=== PATIENT | female | born 1965 ===

== ENCOUNTER 2019-11-21 08:33 | Outpatient (CLI) | payer OTHER ==
--- NOTE | 2019-11-21 09:03 | ULT ---
Sonogram right upper quadrant HISTORY: Nausea. Right upper quadrant pain. FINDINGS: Gallbladder has a normal appearance without stone evident. Common duct is 0.4 cm. Liver is diffusely echogenic without focal mass or intrahepatic biliary dilatation. No free fluid. IMPRESSION : No evidence of gallstones or biliary obstruction. Hepato-steatosis.
== END 2019-11-21 08:34 | disposition home or self-care (01) ==
LOC: BICULT 08:33
PROVIDERS: ATTEND Internal Medicine Gastroenterology
DX: R10.11 Right upper quadrant pain (principal); K76.0 Fatty (change of) liver, not elsewhere classified
CPT/HCPCS: 76705

== ENCOUNTER 2019-12-01 10:06 | Outpatient (CLI) | payer OTHER ==
[2019-12-01] MEDS ORDERED: Iopamidol 370 76% 100 ML VIAL ONE (13:49)
--- NOTE | 2019-12-01 16:50 | CT ---
ABDOMEN AND PELVIC CT SCAN WITH IV CONTRAST: History: Abdominal pain. FINDINGS: 0.5 cm diameter pleural based nodule in the left lower lobe. The remainder of the visualized lower lung zones appear unremarkable. Small hiatal hernia. The liver is unremarkable. Slightly contracted gallbladder without gallstones or pericholecystic fluid or fat stranding. Pancreas appears unremarkable. Minimal splenomegaly at 16 cm. Pancreas appears unremarkable. There is evidence for some scattered somewhat nodular fat stranding within the central abdominal mese ntery with some minimally enlarged somewhat elongated tortuous appearing lymph nodes, nonspecific but this certainly can be seen in mesenteric panniculitis. No CT evidence for acute appendicitis. No abs cess or abnormal fluid collection. Status post hysterectomy. IMPRESSION: Splenomegaly. Small hiatal hernia. 0.5 cm pleural based nodule in the left lower lobe. Somewhat nodular fat stranding in the central mesentery with some minimally enlarged somewhat elongat ed and tortuous appearing lymph nodes, nonspecific, but evidence for mesenteric panniculitis. POS: AH
== END 2019-12-01 10:07 | disposition home or self-care (01) ==
LOC: CT 10:06
PROVIDERS: ATTEND Internal Medicine Gastroenterology
DX: R10.10 Upper abdominal pain, unspecified (principal); R10.33 Periumbilical pain; R16.1 Splenomegaly, not elsewhere classified; K44.9 Diaphragmatic hernia without obstruction or gangrene; R91.1 Solitary pulmonary nodule; K65.4 Sclerosing mesenteritis
CPT/HCPCS: 74177; Q9967